=== PATIENT | female | born 1995 | race African-American/Black ===

== ENCOUNTER 2016-12-22 18:30 | Emergency (ER) | payer SELFPAY ==
[~2016-12-22] VITALS: Ht 162.6 cm; Wt 98.8 kg
[~2016-12-22 18:30] MED LIST: AMOXICILLIN500 MG PO; TORADOL PO; TYLENOL 500MG TAB PO
[2016-12-22 19:15] LABS: HEMATOCRIT 39.8 % (37.0-47.0); HEMOGLOBIN 13.4 g/dl (12.0-16.0); IMMATURE GRANULOCYTES 0.4 % (0.0-1.0); MEAN CELL VOLUME 86.5 fL CALC (80.0-100.0); MEAN CORPUSCULAR HGB 29.1 pG CALC (26.0-32.0); MEAN CORPUSCULAR HGB CONC 33.7 g/L CALC (32.0-36.0); NEUT# 11.72 thou/uL (2.00-7.15); RED BLOOD COUNT 4.6 mill/uL (4.20-5.60); RED CELL DISTRI WIDTH 13.6 % (11.5-15.5)
[2016-12-22 19:27] LABS: URINE BILIRUBIN - DIPSTICK NEGATIVE (NEGATIVE); URINE BLOOD DIPSTICK NEGATIVE (NEGATIVE); URINE CLARITY CLEAR; URINE COLOR YELLOW; URINE GLUCOSE - DIPSTICK NEGATIVE (NEGATIVE); URINE KETONE NEGATIVE (NEGATIVE); URINE LEUK ESTERASE NEGATIVE (NEGATIVE); URINE NITRITE - DIPSTICK NEGATIVE (Negative); URINE PROTEIN - DIPSTICK NEGATIVE (NEG-TRACE); URINE SPECIFIC GRAVITY >=1.030; URINE UROBILINOGEN - DIPSTICK 0.2 E.U./dL (0.2)
[2016-12-22 19:35] LABS: ALBUMIN 4.5 g/dL (3.2-5.0); ALKALINE PHOSPHATASE 69 u/l (38-126); AMYLASE 87 u/l (30-110); ANION GAP 16 (6-22 (CALC)); BILIRUBIN, TOTAL 0.5 mg/dL (0.0-1.4); BUN 13 mg/dL (7-17); BUN/CREATININE RATIO 17 (12-20 (CALC)); CARBON DIOXIDE 21 mmol/l (22-30); CHLORIDE 103 mmol/l (95-108); CREATININE 0.8 mg/dL (0.5-1.0); GFR > 60 ML/MIN (>=60 (CALC)); GFR FOR AFR.AMER. > 60 ML/MIN (>=60 (CALC)); GLUCOSE 96 mg/dL (65-105); LIPASE 48 u/l (23-300); POTASSIUM 4.2 mmol/l (3.5-5.1); SGOT/AST 30 u/l (14-36); SGPT/ALT 30 u/l (9-52); SODIUM 137 mmol/l (137-146); TOTAL PROTEIN 8.4 g/dL (6.3-8.2)
[2016-12-22] MEDS ORDERED: ULTRAM50 M1 PO (21:27)
[2016-12-22 21:35] VITALS: BP 121/73
== END 2016-12-22 21:40 | disposition home or self-care (01) | DRG 761 ==
LOC: ED 18:30
PROVIDERS: Emergency Medicine
DX: N83.202 Unspecified ovarian cyst, left side (principal)

== ENCOUNTER → 2018-09-16 | Outpatient (REF) | payer BC ==
[~2018-09-16] VITALS: Ht 165.1 cm; Wt 109.5 kg
[~2018-09-16] MED LIST changes: +ULTRAM50 M1 PO
[2018-09-16 10:16] LABS: BARBITURATES NEGATIVE (NEGATIVE); COCAINE NEGATIVE (NEGATIVE); METHADONE NEGATIVE (NEGATIVE); OXCYCODONE NEGATIVE (NEGATIVE); TETRAHYDROCANNABIONOL NEGATIVE (NEGATIVE); TRICYLIC ANTIDEPRESSANTS NEGATIVE (NEGATIVE)
[2018-09-16 10:34] VITALS: BP 149/97
== END | disposition home or self-care (01) | DRG 950 ==
LOC: PAIN/MGT 09:59
PROVIDERS: ATTEND Anesthesiology Pain Medicine
DX: Z51.81 Encounter for therapeutic drug level monitoring (principal); Z79.891 Long term (current) use of opiate analgesic

== ENCOUNTER 2021-07-21 12:09 | Emergency (ER) | payer SELFPAY ==
[~2021-07-21] VITALS: Ht 266.7 cm; Wt 115.0 kg
[2021-07-21 15:22] VITALS: BP 125/73
== END 2021-07-21 15:32 | disposition home or self-care (01) | DRG 179 ==
LOC: ED 12:09
DX: U07.1 COVID-19 (principal)

== ENCOUNTER 2022-08-02 20:46 | Emergency (ER) | payer SELFPAY | END 2022-08-02 20:59 | disposition left against medical advice (07) | DRG 951 | LOC: ED 20:46 → LWOBS 20:48 | DX: Z53.21 Procedure and treatment not carried out due to patient leaving prior to being seen by health care provider (principal) ==